=== PATIENT | female | born 1990 | race Caucasian/White ===

== ENCOUNTER 2018-11-03 12:57 | Day surgery (SDC) | payer OTHER ==
[2018-11-03] VITALS (7 sets, daily range): BP systolic 96–124; BP diastolic 62–82; PULSE 74–97; TEMP 98.1–98.6
[~2018-11-03] VITALS: Ht 170.2 cm; Wt 64.2 kg
[2018-11-03] MEDS ORDERED: PROBIOTIC FORMU1 CAP PO (13:25)
[2018-11-03] MEDS ORDERED: PRENATAL MVI PO (13:25)
--- NOTE | 2018-11-03 13:54 | NUR ---
Patient to procedure at this time with endo CATIA Castanon.
--- NOTE | 2018-11-03 14:50 | NUR ---
Patient arrives to [facility] bay [facility] via cart, accompanied by CABIN CLEAN[employer] SUPERVISOR Kina. She is alert and oriented, tearful. She denies any pain or nausea. Ambulates with standby assist to chair in room. Monitoring applied - VSS and WNL on room air. Patient is very emotional and asking why she feels so emotional. Explained to patient that everyone reacts to anesthesia medications differently and some respond emotionally. Her significant other is at the bedside offering support. Her gag reflex is intact. Offered and receives water and crackers to eat. Patient does complain of some itching to CATIA Morales. CATIA Morales notifies Dr. Saravia and is awaiting any further instruction/orders. Will continue to monitor.
--- NOTE | 2018-11-03 15:05 | NUR ---
Patient is resting in room. Remains tearful. She is drinking water and eating crackers. Denies any pain or nausea. She continues to have itching - receives Benadryl IV for itching. Will continue to monitor.
--- NOTE | 2018-11-03 15:06 | NUR ---
Order received for one time dose of benadryl IV (see EMAR).
--- NOTE | 2018-11-03 15:20 | NUR ---
VSS and WNL on room air. Patient denies any pain or nausea.
--- NOTE | 2018-11-03 15:35 | NUR ---
VSS and WNL on room air. Dr. Saravia at the bedside.
--- NOTE | 2018-11-03 15:50 | NUR ---
VSS and WNL on room air. Patient is awake, but drowsy. She is talking with her family. Denies any pain or nausea. Will continue to monitor.
--- NOTE | 2018-11-03 16:15 | NUR ---
Patient has met discharge criteria. Her significant other is at the bedside for discharge teaching. Discharge instructions discussed, denies any questions, and verbalizes understanding. PIV removed with catheter intact and hemostasis achieved. Patient changing to clothing with assistance of significant other.
--- NOTE | 2018-11-03 16:20 | NUR ---
Patient escorted to exit via wheelchair. Discharged to home with ride in private vehicle at 1620.
== END 2018-11-03 16:20 | disposition home or self-care (01) ==
LOC: SDCO 12:57
DX: K21.0 Gastro-esophageal reflux disease with esophagitis (principal); K59.00 Constipation, unspecified; R10.84 Generalized abdominal pain; F41.9 Anxiety disorder, unspecified; F32.9 Major depressive disorder, single episode, unspecified
CPT/HCPCS: J1200; J2250; J2405; J3010; J7030